=== PATIENT | male | born 1960 | race Caucasian/White ===

== ENCOUNTER → 2023-10-02 | Outpatient (CLI) | payer BC | LOC: MHCPAIN 14:25 | DX: M47.812 Spondylosis without myelopathy or radiculopathy, cervical region (principal) | CPT/HCPCS: J1100; Q9967 ==

== ENCOUNTER → 2024-06-30 | Outpatient (CLI) | payer BC | LOC: MHCPAIN 14:22 | DX: M50.223 Other cervical disc displacement at C6-C7 level (principal); M48.02 Spinal stenosis, cervical region; E78.5 Hyperlipidemia, unspecified; N40.0 Benign prostatic hyperplasia without lower urinary tract symptoms; M54.12 Radiculopathy, cervical region; M25.511 Pain in right shoulder | CPT/HCPCS: G0463 ==

== ENCOUNTER → 2024-07-19 | Outpatient (CLI) | payer BC ==
[~2024-07-19] MED LIST: Iohexol 300 - 10 ML VIAL ONE; Lidocaine PF 2% (20 MG/ML) 2 ML VIAL ONE
== END ==
LOC: MHCPAIN 11:28
DX: M54.12 Radiculopathy, cervical region (principal)
CPT/HCPCS: J1100; Q9967

== ENCOUNTER → 2024-08-30 | Outpatient (CLI) | payer BC | LOC: MHCPAIN 09:30 | DX: M54.12 Radiculopathy, cervical region (principal); M47.892 Other spondylosis, cervical region | CPT/HCPCS: J1010; Q9967 ==